=== PATIENT | male | born 1985 | race Caucasian/White ===

== ENCOUNTER 2023-01-29 17:41 | Emergency (ER) | payer OTHER ==
[~2023-01-29] VITALS: Ht 175.3 cm; Wt 81.6 kg
[2023-01-29 17:45] VITALS: BP 126/85
--- NOTE | 2023-01-29 17:47 | NUR ---
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 PATIENT BBS EQUAL VSS WILL CONTINUE TO MONITOR.
--- NOTE | 2023-01-29 18:10 | NUR ---
EDP AT BEDSIDE FOR INITIAL ASSESSMENT.
[2023-01-29] MEDS ORDERED: NACL 0.9% 1,000 ML IV ONE (18:20)
[2023-01-29 18:35] LABS: BASOPHILS # (AUTO) 0.1 K/uL (0.00-0.22); BASOPHILS % (AUTO) 0.7 % (0.0-2.0); EOSINOPHILS # (AUTO) 0.2 K/uL (0-0.4); EOSINOPHILS % (AUTO) 1.5 % (0.0-4.0); HEMATOCRIT 47.5 % (36-52); HEMOGLOBIN 16.2 g/dL (12.0-18.0); LYMPHOCYTES # (AUTO) 1.6 K/uL (2.0-11.5); LYMPHOCYTES % (AUTO) 12.5 % (20.5-51.1); MEAN CORPUSCULAR HEMOGLOBIN 31 pg (27-31); MEAN CORPUSCULAR HGB CONC 34 g/dL (33-37); MEAN CORPUSCULAR VOLUME 89.7 fL (80-94); MONOCYTES # (AUTO) 0.7 K/uL (0.8-1.0); MONOCYTES % (AUTO) 5.8 % (1.7-9.3); NEUTROPHILS % (AUTO) 79.5 % (42.2-75.2); PLATELET COUNT (AUTO) 169 K/uL (140-450); RED CELL DISTRIBUTION WIDTH 13.6 % (11.6-13.7); WHITE BLOOD COUNT (AUTO) 12.6 K/uL (4.8-10.8)
[2023-01-29 18:58] LABS: ALBUMIN 3.6 g/dL (3.4-5.0); ANION GAP 13.1 (8-16); ASPARTATE AMINOTRANSFERASE 70 U/L (15-37); CARBON DIOXIDE 27.5 mmol/L (21-32); CHLORIDE 102 mmol/L (98-107); CREATININE 1.1 mg/dL (0.6-1.3); GFR ARICAN-AMERICAN 96 mL/min (>90); GLUCOSE 123 mg/dL (74-106); POTASSIUM 4.6 mmol/L (3.5-5.1); SODIUM SERUM 138 mmol/L (136-145); TOTAL BILIRUBIN 0.5 mg/dL (0.0-1.0); UREA NITROGEN, BLOOD 15 mg/dL (7-18)
[2023-01-29 19:06] LABS: ACETAMINOPHEN < 0.5 ug/ml (10-30); SALICYLATE < 2.8 mg/dL (2.8-20.0)
--- NOTE | 2023-01-29 19:36 | NUR ---
pt asking for urinal. he asked that he wanted to get his car
[2023-01-29] MEDS ORDERED: NALO4SPR NS (19:51)
[2023-01-29 20:46] VITALS: BP 119/86
--- NOTE | 2023-01-29 20:48 | NUR ---
Patient discharged with v/s stable. Written and verbal after care instructions given and explained. Patient verbalized understanding. Ambulatory with steady gait. All questions addressed prior to discharge. Advised to follow up with PMD. PT LEFT WITH WHAT HE IS WEARING
== END 2023-01-29 20:46 | disposition home or self-care (01) ==
LOC: MED 17:41
DX: R40.4 Transient alteration of awareness (principal); T40.1X4A Poisoning by heroin, undetermined, initial encounter; Z79.899 Other long term (current) drug therapy; Y92.009 Unspecified place in unspecified non-institutional (private) residence as the place of occurrence of the external cause
CPT/HCPCS: 36415; 71045; 80053; 85025; 93005; 96360; 99291; G0480; G0482; J7030; 99285